=== PATIENT | female | born 1980 | race African-American/Black ===

== ENCOUNTER 2022-03-01 19:11 | Emergency (ER) | payer OTHER, SELFPAY ==
[2022-03-01 19:38] VITALS: BP 146/91; PULSE 89; RESP 18; TEMP 36.9; O2SAT 100
--- NOTE | 2022-03-01 20:09 | ED.EAR ---
HPI - Ear Problem General Chief complaint: Ear Stated complaint: Ear feels like water left side Time Seen by Provider: 03/01/22 19:55 Source: patient, RN notes reviewed and old records reviewed Mode of arrival: ambulatory Limitations: no limitations History of Present Illness HPI Narrative: 41-year-old female who presents to [facility] with complaints left ear pain past 2 days. Patient states she has sinus pressure, some earache, headaches. which has been going for 2 days she has been taking Tylenol for her discomfort MD Complaint: ear pain Location: left ear Duration: constant Severity: moderate Related Data Home Medications Medication Instructions Recorded Confirmed atorvastatin 40 mg tablet 40 mg PO DAILY 03/01/22 03/01/22 carbamazepine 200 mg tablet 200 mg PO DAILY 03/01/22 03/01/22 cyclobenzaprine 5 mg tablet 5 mg PO DAILY 03/01/22 03/01/22 ibuprofen 800 mg tablet 800 mg PO QID 03/01/22 03/01/22 Allergies Allergy/AdvReac Type Severity Reaction Status Date / Time No Known Allergies Allergy Verified 03/01/22 19:34 Review of Systems Review of Systems: CONSTITUTIONAL: Denies malaise, chills, sweats, or fever. EYES: Denies visual changes, redness, or discharge. ENT: Reports rhinorrhea, congestion,no sinus pain,positive for left otalgia no sore throat. CARDIOVASCULAR: Denies chest pain, palpitations, or edema. RESPIRATORY: Reports cough.? Denies dyspnea. GASTROINTESTINAL: Denies abdominal pain, nausea, vomiting, diarrhea SKIN: Denies rash or itching. MUSCULOSKELETAL: Denies myalgia. NEUROLOGIC: Denies headache. All systems reviewed & are unremarkable except as noted in HPI and below PMFSH Past Medical History Medical History (Updated 03/01/22 @ 20:16 by Deanna Cervantes NP) Back pain Elevated cholesterol Seasonal allergies Seizures Social History Social History (Updated 03/01/22 @ 20:28 by Deanna Cervantes NP) Smoking status: Never smoker Alcohol intake: current Alcohol use details: rare alcohol Substance use: never Substance use type: does not use Living arrangements: with family Gender identity (if verbalized by the patient): Female Comments At time of signature, agree with nursing past medical, surgical, social and family history. There is no relevant family history pertinent to the presenting complaint Exam Narrative: GENERAL: Well-appearing, well-nourished, and in no acute distress. HEAD: Normocephalic EYES: PERRLA, conjunctivae clear ENT: Nares clear, turbinates edematous and erythematous, clear discharge. Mucous membranes moist. Right TM pearly perez with dull light reflex Left TM red with bulging, no drainage noted bilaterally; positive for tragal tenderness left ear. Oropharynx erythematous without lesions. Tonsils not enlarged and without exudate, no drooling, no hoarseness, no trismus, uvula midline. NECK: Supple. No lymphadenopathy CHEST: Clear to auscultation, breath sounds equal. No wheezing, rhonchi, rales, or stridor. No respiratory distress, speaks in full sentences. HEART: Regular rate and rhythm. No murmur heard. SKIN: Warm, dry, no rash. NEURO: Alert and oriented x3. PSYCH: Normal mood and affect Course Course Emergency Course: Patient is aware of diagnosis, understands and agrees to treatment plan.? Anticipatory guidance given.? Patient agrees to follow-up as directed and is aware of reasons to seek care at the emergency department. Portions of this record may have been created with voice recognition software Level of Care: Express Care Visit Vital Signs Vital signs: Vital Signs Temperature 36.9 C 03/01/22 19:38 Pulse Rate 89 03/01/22 19:38 Respiratory Rate 18 03/01/22 19:38 Blood Pressure 146/91 H 03/01/22 19:38 Pulse Oximetry 100 03/01/22 19:38 Oxygen Delivery Room Air 03/01/22 19:38 Temperature 36.9 C 03/01/22 19:38 Pulse Rate 89 03/01/22 19:38 Respiratory Rate 18 03/01/22 19:38 Blo
== END 2022-03-01 20:15 | disposition home or self-care (01) ==
PROVIDERS: Emergency Provider Registered Nurse; PCP Internal Medicine
DX: H65.02 Acute serous otitis media, left ear (principal)
CPT/HCPCS: 99213; G0463